=== PATIENT | female | born 1960 | race Caucasian/White ===

== ENCOUNTER 2022-01-21 18:07 | Outpatient (CLI) | payer MEDICARE | END 2022-01-21 18:08 | disposition short-term general hospital (02) | LOC: EMS 18:07 | DX: R07.89 Other chest pain (principal); R42 Dizziness and giddiness; R00.2 Palpitations; F41.9 Anxiety disorder, unspecified | CPT/HCPCS: A0425; A0427; A0888 ==

== ENCOUNTER 2022-10-28 22:01 | Emergency (ER) | payer MEDICARE ==
--- NOTE | 2022-10-28 22:20 | ED Physician Documentation ---
History of Present Illness - Stated complaint Stated Complaint: HIGH HR - Chief complaint Chief Complaint: Cardiac - History obtained from History obtained from: Patient - History of Present Illness Timing: Today Pain level max: 0 Pain level now: 0 - Additonal information Additional information: Patient is a 62-year-old female who presents to the emergency department complaining of rapid heartbeat today at home. She states that she has a history of SVT. No history of A-fib. She does see a rn surgery at [facility], Dr. Rodrigues. She states that she has no chest pain. No shortness of breath. She is on metoprolol and amlodipine at home for hypertension. No fevers. No chills. Review of Systems Constitutional: denies: Fever, Chills GI: denies: Nausea, Vomiting, Diarrhea Skin: denies: Rash Musculoskeletal: denies: Neck pain, Back pain Neurologic: denies: Headache PD PAST MEDICAL HISTORY - Past Medical History Cardiovascular: Arrhythmia, Valve disorder Neuro: Peripheral neuropathy GI: GERD Musculoskeletal: Other - Past Surgical History General: Cholecystectomy, Appendectomy Cardiovascular: Lobectomy - Present Medications Home Medications: Ambulatory Orders Medication Instructions Recorded Confirmed Benzonatate [Tessalon Perle] 100 - 200 mg PO TID PRN #30 capsule 03/07/18 Doxycycline Hyclate 100 mg PO BID #20 capsule 03/07/18 Esomeprazole Magnesium [Nexium] 03/07/18 03/07/18 Gabapentin 03/07/18 Loratadine [Claritin] 03/07/18 Metoprolol Tartrate 03/07/18 Polymyxin B/Trimeth Ophth Drop 1 drops LEFTEYE Q3H 7 Days #1 03/07/18 [Polytrim Ophth Drops] bottle traMADol [Ultram] 03/07/18 - Allergies Allergies/Adverse Reactions: Allergies Allergy/AdvReac Type Severity Reaction Status Date / Time prochlorperazine Allergy Hallucinati Verified 03/07/18 18:57 [From Compazine] ons trazodone Allergy Anaphylaxis Verified 10/28/22 22:04 - Social History Does the pt smoke?: No Smoking Status: Never smoker Does the pt drink ETOH?: Yes Does the pt have substance abuse?: No - Immunizations Immunizations are current?: Yes PD ED PE NORMAL - Vitals Vital signs reviewed: Yes - General General: Alert and oriented X 3, No acute distress - HEENT HEENT: Moist mucous membranes - Neck Neck: Supple, no meningeal sign - Cardiac Cardiac: Other (tachycardic. regular) - Respiratory Respiratory: No respiratory distress - Abdomen Abdomen: Soft, Non tender, Non distended Results - Vitals Vitals: Vital Signs - 24 hr 10/28/22 10/28/22 10/28/22 22:05 22:47 23:04 Temperature 36.5 C Heart Rate 180 H 95 83 Respiratory 16 16 16 Rate Blood Pressure 138/100 H 153/100 H 125/83 H O2 Saturation 100 99 98 Oxygen O2 Source Room air - EKG (time done) 2210 EKG releavant findings:: EKG personally interpreted by author of this note. Relevant findings are: Rate: Rate (enter#) (162) Rhythm: Other (tachycardic) [place]: Normal Ischemia: Non specific changes 2247 EKG releavant findings:: EKG personally interpreted by author of this note. Relevant findings are: Rate: Rate (enter#) (86) Rhythm: NSR [place]: Normal Intervals: Normal IN QRS: Normal Ischemia: ST depression (minimal) Compare to prior EKG: Old EKG unavailable - Labs Labs: Laboratory Tests 10/28/22 10/28/22 10/28/22 22:29 22:29 22:29 WBC 8.8 RBC 5.23 Hgb 14.9 Hct 44.8 MCV 85.7 MCH 28.5 MCHC 33.3 RDW 13.2 Plt Count 233 MPV 9.2 Neut # (Auto) 4.8 Lymph # (Auto) 3.3 [place] # (Auto) 0.6 Eos # (Auto) 0.1 Baso # (Auto) 0.0 Absolute Nucleated RBC 0.00 Nucleated RBC % 0.0 Sodium 138 Potassium 3.3 L Chloride 106 Carbon Dioxide 26 Anion Gap 6.0 BUN 15 Creatinine 0.7 Estimated GFR (MDRD) 85 L Glucose 145 H Calcium 10.4 H Phosphorus 3.5 L Magnesium 1.8 Total Bilirubin 1.4 H AST 46 H ALT 45 Alkaline Phosphatase 105 Total Protein 8.1 Albumin 4.8 Globulin 3.3 Albumin/Globulin Ratio 1.5 Lipase 33 PD Medical Decision Making - ED course Complexity details: reviewed results, re-evaluated patient, considered differential, d/w patient, d/w family ED course: 62-year-old female with either SVT or atrial flutter with a 2-1 block though I do not see any significant flutter waves on EKG. Discussed Cardizem versus adenosine, patient elects adenosine. Adenosine 6 mg IV given. Patient converted to sinus rhythm. Patient is otherwise asymptomatic. No significant lab abnormalities. We will have her follow-up with her rn surgery for further care. Copies of the EKG were given to the patient to take with her. She will continue her current medications. She has had SVT in the past. Patient counseled regarding signs and symptoms for which I believe and urgent re- evaluation would be necessary. Patient with good understanding of and agreement to plan and is comfortable going home at this time This document was made in part using voice recognition software. While efforts are made to proofread this document, sound alike and grammatical errors may occur. Please note that the patient did not have repeat tachycardia after adenosine, this was an error in the nurse charting. Her heart rate at the time of discharge was 83, not 152. Departure - Departure Disposition: 01 Home, Self Care Clinical Impression: SVT (supraventricular tachycardia) Condition: Good Instructions: ED Tachycardia Pat PSVT Follow-Up: Ck Pryor ARNP [Primary Care Provider] - Brooklynn Rodrigues MD [Physician No Access] - Comments: Please follow-up with your rn surgery for further care. Please take the copies of the EKGs with you. This may have been atrial flutter with a 2-1 block, it may have been SVT as well. You did respond well to adenosine and are back into sinus rhythm. Please return if you worsen. Your labs do not show any significant abnormalities today. Forms: PCP List Discharge Date/Time: 10/28/22 23:10
[2022-10-28] MEDS ORDERED: ADENOSINE 6 MG/2 ML VIAL IVP STA (22:32)
[2022-10-28 22:34] LABS: BASOPHILS % (AUTO) 0.5 %; EOSINOPHILS # (AUTO) 0.1 10^3/uL (0.0-0.7); HCT - HEMATOCRIT 44.8 % (37.0-47.0); HGB - HEMOGLOBIN 14.9 g/dL (12.0-16.0); LYMPHOCYTES # (AUTO) 3.3 10^3/uL (1.5-3.5); LYMPHOCYTES % (AUTO) 37.6 %; MEAN CORPUSCULAR HEMOGLOBIN 28.5 pg (27.0-31.0); MEAN CORPUSCULAR HGB CONC 33.3 g/dL (32.0-36.0); MEAN CORPUSCULAR VOLUME 85.7 fL (81.0-99.0); MEAN PLATELET VOLUME 9.2 fL (7.9-10.8); MONOCYTES # (AUTO) 0.6 10^3/uL (0.0-1.0); MONOCYTES % (AUTO) 6.5 %; NEUTROPHILS # (AUTO) 4.8 10^3/uL (1.5-6.6); NEUTROPHILS % (AUTO) 54.2 %; PLT - PLATELET COUNT 233 10^3/uL (130-450); RED BLOOD COUNT 5.23 10^6/uL (4.20-5.40); RED CELL DISTRIBUTION WIDTH 13.2 % (12.0-15.0); WHITE BLOOD COUNT 8.8 x10^3/uL (4.8-10.8)
[2022-10-28] MEDS ORDERED: SODIUM CHLORIDE 0.9% 1,000 ML IV STA (22:50)
[2022-10-28 22:55] LABS: ALBUMIN 4.8 g/dL (3.2-5.5); ALBUMIN/GLOBULIN RATIO 1.5 (1.0-2.2); BILIRUBIN,TOTAL 1.4 mg/dL (0.2-1.0); CALCIUM 10.4 mg/dL (8.5-10.3); CREATININE 0.7 mg/dL (0.6-1.3); MAGNESIUM 1.8 mg/dL (1.7-2.3); PHOSPHORUS 3.5 mg/dL (3.7-7.2); POTASSIUM 3.3 mmol/L (3.5-4.5); TOTAL PROTEIN 8.1 g/dL (6.4-8.9)
[2022-10-28 23:18] VITALS: BP 125/83
== END 2022-10-28 23:10 | disposition home or self-care (01) ==
LOC: ED 22:01
DX: I47.1 Supraventricular tachycardia (principal)
CPT/HCPCS: 36415; 80053; 83690; 83735; 84100; 85025; 93005; 96374; 99284; J0153

== ENCOUNTER 2023-12-04 08:00 | Outpatient (CLI) | payer MEDICARE | END 2023-12-04 23:59 | disposition home or self-care (01) | LOC: LAB.N 08:00 | PROVIDERS: ATTEND Physician Assistant Medical | DX: R06.02 Shortness of breath (principal) ==